=== PATIENT | female | born 1950 | race Caucasian/White ===

== ENCOUNTER → 2018-03-23 12:16 | Outpatient (CLI) | payer OTHER, SELFPAY ==
[2018-03-23 15:38] LABS: Free T4, Direct Thyroxine 0.98 ng/dL (0.78-2.19)
[2018-03-23 15:52] LABS: Thyroid Stimulating Hormone 0.38 uIU/mL (0.47-4.68)
== END ==
PROVIDERS: Family Provider Physician Assistant; PCP Physician Assistant; Visit Provider Internal Medicine Endocrinology, Diabetes & Metabolism
DX: E05.90 Thyrotoxicosis, unspecified without thyrotoxic crisis or storm (principal)
CPT/HCPCS: 36415; 84439; 84443

== ENCOUNTER → 2018-09-28 10:03 | Outpatient (CLI) | payer OTHER, SELFPAY ==
[2018-09-28 11:37] LABS: Free T4, Direct Thyroxine 1.08 ng/dL (0.78-2.19)
[2018-09-28 11:51] LABS: Thyroid Stimulating Hormone 0.44 uIU/mL (0.47-4.68)
== END ==
PROVIDERS: Family Provider Physician Assistant; PCP Physician Assistant; Visit Provider Internal Medicine Endocrinology, Diabetes & Metabolism
DX: E05.90 Thyrotoxicosis, unspecified without thyrotoxic crisis or storm (principal)
CPT/HCPCS: 36415; 84439; 84443

== ENCOUNTER 2019-01-20 07:59 | Day surgery (SDC) | payer OTHER, SELFPAY ==
--- NOTE | 2019-01-16 13:55 | PM.PREOP ---
Pre-operative Note Interval Note History & Physical reviewed/Exam performed by Physician: Yes Changes to H&P: No
--- NOTE | 2019-01-16 13:55 | PM.OP.1 ---
Operative Date/Time/Diagnoses Date of procedure: 01/20/19 Time of procedure: 08:45 Procedure & Clinicians Procedure: Preoperative diagnoses: 1. 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 2. Attention deficit disorder. Postoperative diagnoses: 1. Cataract removed by phacoemulsification with placement of posterior chamber intraocular lens. Procedure: Phacoemulsification with posterior chamber intraocular lens implant Surgeon: Estelle Gurrola MD Complications: None Specimen: None Implant: ZCBOO+21.0 Blood loss: None Anesthesia: Retrobulbar with monitored standby Description of procedure: Patient presents with a complaint of decreased vision due to cataract which is affecting activities of daily living. The patient wants surgery to improve vision. The patient was taken to the operating room and given IV sedation. A retrobulbar block consisting of 6 cc of 2% xylocaine without epinephrine mixed half and half with 0.5% Marcaine with 1 cc of hyaluronidase added is placed between the medial and lateral 1/3 of the inferior orbital rim. Lid akinesia is obtain with 1% xylocaine with epinephrine infiltrated along the lid margin. The eye is manually massaged for 30 sec, prepped using Betadine solution, and draped in the usual sterile fashion. Temporal approach was made, a 1 mm side-port incision was made 90? from the proposed clear corneal incision position. Phenylephrine 1.5% mixed with 1% xylocaine 0.2 cc was placed into the anterior chamber. Viscoat followed by Bethany was then placed. A 2.6 mm clear incision with a 2.6 mm blade was placed. A 360 degree capsulorrhexis style capsulotomy was then performed with a cystitome needle on a Healon. Hydrodelineation and hydrodissection were performed. The phacoemulsification unit is introduced, and sculpting notice used to groove the central lens. It was difficult to crack so was rotated and read grooved and then cracked into quadrants. It is then removed in chopping mode. Epi nucleus is removed with epinuclear mode and irrigation aspiration was used to remove the peripheral cortex. The posterior capsule is polished. The intraocular lens is selected, inspected, power confirmed, and placed in the posterior chamber. The pupil was constricted with Miostat.. The wound was stromally hydrated and tested for leaks, there was none and it was left sutureless. Vigamox 0.1 cc was placed into the anterior chamber. Kenalog 0.2 cc was placed in the superior subconjunctival space. A drop of antibiotic and was placed and the eye was patched and shielded. The patient was stable and returned to the recovery room in excellent condition. Dictated by: Estelle Gurrola MD Copy to: [facility]
--- NOTE | 2019-01-16 13:58 | P.OP_ITS ---
Operative Date/Time/Diagnoses Date of procedure: 01/20/19 Time of procedure: 08:45 Procedure & Clinicians Procedure: Preoperative diagnoses: 1. 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 2. Attention deficit disorder. Postoperative diagnoses: 1. Cataract removed by phacoemulsification with placement of posterior chamber intraocular lens. Procedure: Phacoemulsification with posterior chamber intraocular lens implant Surgeon: Estelle Gurrola MD Complications: None Specimen: None Implant: ZCBOO+21.0 Blood loss: None Anesthesia: Retrobulbar with monitored standby Description of procedure: Patient presents with a complaint of decreased vision due to cataract which is affecting activities of daily living. The patient wants surgery to improve vision. The patient was taken to the operating room and given IV sedation. A retrobulba r block consisting of 6 cc of 2% xylocaine without epinephrine mixed half and half with 0.5% Marcaine with 1 cc of hyaluronidase added is placed between the medial and lateral 1/3 of the inferior orbital rim. Lid akinesia is obtain with 1% xylocaine with epinephrine infiltrated along the lid margin. The eye is manually massaged for 30 sec, prepped using Betadine solution, and draped in the usual sterile fashion. Temporal approach was made, a 1 mm side-port incision was made 90? from the proposed clear corneal incision position. Phenylephrine 1.5% mixed with 1% xylocaine 0.2 cc was placed into the anterior chamber. Viscoat followed by Bethany was then placed. A 2.6 mm clear incision with a 2.6 mm blade was placed. A 360 degree capsulorrhexis style capsulotomy was then performed with a c ystitome needle on a Healon. Hydrodelineation and hydrodissection were performed. The phacoemulsification unit is introduced, and sculpting notice used to groove the central lens. It was difficult to crack so was rotated and read grooved and then cracked into quadrants. It is then removed in chopping mode. Epi nucleus is removed with epinuclear mode and irrigation aspiration was used to remove the peripheral cortex. The posterior capsule is polished. The intraocular lens is selected, inspected, power confirmed, and placed in the posterior chamber. The pupil was constricted with Miostat.. The wound was stromally hydrated and tested for leaks, there was none and it was left sutureless. Vigamox 0.1 cc was placed into the anterior chamber. Kenalog 0.2 cc was placed in the superior subconjunctival space. A drop of antibiotic and was placed and the eye was patched and shielded. The patient was stable and returned to the recovery room in excellent condition. Dictated by: Estelle Gurrola MD Copy to: [facility]
[2019-01-20] MEDS: PROPARACAINE 0.5% OPHTH SOL 2 DROPS EYE-OP (08:15)
[2019-01-20] MEDS: CATARACT EYE COMPOUND (10 DROPS/SYRINGE) 3 DROPS EYE-OP ×3 (08:16→08:26)
[2019-01-20 08:23] VITALS: BP 123/72; PULSE 79; RESP 15; TEMP 36.5; O2SAT 99; BMI 26.0
[2019-01-20] MEDS: CHONDROIDTIN/SOD HYALURONATE 1.05 ML SYRINGE INTRAOCULA (09:22)
[2019-01-20] MEDS: BALANCED SALT IRRIG SOLN NO.2 15 ML IRR (09:22)
[2019-01-20] MEDS: CARBACHOL 1.5 ML VIAL INJ (09:22)
[2019-01-20] MEDS: HYALURONATE SODIUM 10 MG/ML SYRINGE INJ (09:23)
[2019-01-20] MEDS: LIDOCAINE 1% W/EPI INJ 20 ML INJ (09:23)
[2019-01-20] MEDS: MOXIFLOXACIN OPHTH DROPS 3 ML BOTTLE 2 DROPS INJ (09:23)
[2019-01-20] MEDS: NEOMYCIN/POLY/DEX OPHTH OINT 1 APPLIC EYE-RIGHT (09:24)
[2019-01-20] MEDS: PHENYLEPHRINE/LIDOCAINE VIAL (OR) 0.2 ML EYE-OP (09:24)
[2019-01-20] MEDS: OFLOXACIN 0.3% OPHTH 5 ML 2 DROPS EYE-RIGHT (09:24)
[2019-01-20] MEDS: TRIAMCINOLONE 50 MG/5 ML VIAL INJ (09:25)
[2019-01-20] MEDS: LIDOCAINE 2% 4 ML, BUPIVACAINE 0.5% (PF) 4 ML, HYALURONIDASE 150 UNIT INJ (09:26)
[2019-01-20] MEDS: BALANCED SALT IRRIG SOLN NO.2 500 ML, EPINEPHrine 1 MG IRR (09:26)
[2019-01-20 09:27] VITALS: BP 114/72; PULSE 73; RESP 16; TEMP 36.2; O2SAT 100
[2019-01-20 09:32] VITALS: BP 107/70; PULSE 78; RESP 15; TEMP 36.1; O2SAT 98
--- NOTE | 2019-01-20 10:19 | SUR.PHASEII ---
0988 late entry - Stable, denies discomfort; Spouse to chairside; instructions reviewed, no questions, tolerating PO well.
== END 2019-01-20 09:40 | disposition home or self-care (01) ==
LOC: OR 08:00
PROVIDERS: Family Provider Physician Assistant; PCP Physician Assistant; Visit Provider Ophthalmology
PROC: (CPT 66984; principal; 2019-01-20 08:45)
DX: H25.811 Combined forms of age-related cataract, right eye (principal)
CPT/HCPCS: 66984; J0171; J2250; J2704; J3010; J3301; J3470

== ENCOUNTER → 2019-03-29 07:41 | Outpatient (CLI) | payer OTHER, SELFPAY ==
[2019-03-29 09:07] LABS: Free T4, Direct Thyroxine 0.92 ng/dL (0.78-2.19); Vitamin D 25 Hydroxy (D3) 35.7 ng/mL (30.0-100.0)
[2019-03-29 09:21] LABS: Thyroid Stimulating Hormone 0.97 uIU/mL (0.47-4.68)
[2019-04-01 14:50] LABS: Parathyroid Hormone Int 42 pg/mL (14-64)
== END ==
PROVIDERS: Family Provider Physician Assistant; PCP Physician Assistant; Visit Provider Internal Medicine Endocrinology, Diabetes & Metabolism
DX: E05.90 Thyrotoxicosis, unspecified without thyrotoxic crisis or storm (principal); M85.80 Other specified disorders of bone density and structure, unspecified site
CPT/HCPCS: 36415; 82306; 83970; 84439; 84443

== ENCOUNTER → 2019-05-19 08:58 | Outpatient (CLI) | payer OTHER, SELFPAY ==
--- NOTE | 2019-05-19 | DI.MG.S_ITS ---
BILATERAL DIGITAL SCREENING MAMMOGRAM 3D/2D WITH CAD: 05/19/2019 CLINICAL: Routine screening. Family history of breast cancer. Comparison is made to exams dated: 04/01/2013 mammogram, 09/19/2015 mammogram, and 10/09/2016 mammogram - [facility]. The tissue of both breasts is heterogeneously dense. This may lower the sensitivity of mammography. Current study was also evaluated with a Computer Aided Detection (CAD) system. No significant masses, calcifications, or other findings are seen in either breast. There has been no significant interval change. IMPRESSION: NEGATIVE There is no mammographic evidence of malignancy. A 1 year screening mammogram is recommended. This exam was interpreted at Station ID: [id number]. NOTE: For mammograms, a report in lay terms will be sent to the patient. Approximately 15% of breast malignancies will not be visualized mammographically. In the management of a palpable breast mass, a negative mammogram must not discourage biopsy of a clinically suspicious lesion. Electronically Signed By: Librado durbin/luis felipe:05/19/2019 13:32:25 letter sent: Normal Exam ACR BI-RADS Category 1: Negative 3341F
== END ==
PROVIDERS: PCP Physician Assistant; Visit Provider Physician Assistant
DX: Z12.31 Encounter for screening mammogram for malignant neoplasm of breast (principal); Z80.3 Family history of malignant neoplasm of breast
CPT/HCPCS: 77063; 77067

== ENCOUNTER → 2019-07-08 16:01 | Outpatient (ROUT) | payer OTHER, SELFPAY ==
[2019-07-08 16:23] LABS: Add Manual Diff / Slide Review NO; Basophils Absolute Auto 0 /uL (0-100); Basophils Percent Auto 0.7 % (0-2); Eosinophils Absolute Auto 200 /uL (0-450); Eosinophils Percent Auto 2.9 % (2-4); Hemoglobin 13.3 g/dL (12.0-16.0); Lymphocytes Absolute Auto 2000 /uL (1100-4500); Lymphocytes Percent Auto 29.2 % (25-40); Mean Corpuscular HGB Conc 33.3 % (30-36); Mean Corpuscular Hemoglobin 29.9 PG (26-34); Mean Corpuscular Volume 89.7 fL (80-100); Monocytes Absolute Auto 600 /uL (0-900); Monocytes Percent Auto 9.3 % (3-14); Neutrophils Absolute Auto 4000 /uL (1500-7000); Neutrophils Percent Auto 57.9 % (50-75); Platelet Count 343 X10^3/uL (150-400); Red Blood Cell Count 4.46 X10^6/uL (4.0-5.2); Red Cell Distribution Width 13.6 % (11.6-14.8); White Blood Cell Count 6.9 X10^3/uL (4.5-11.0)
[2019-07-08 16:36] LABS: Alanine Aminotransferase 32 IU/L (<35); Albumin 4.3 g/dL (3.5-5.0); Albumin Globulin Ratio 1.5 (1.0-2.8); Alkaline Phosphatase 73 U/L (38-126); Aspartate Aminotransferase 33 IU/L (14-36); BUN Creatinine Ratio 15.7 (6-22); Bilirubin Total 0.6 mg/dL (0.2-1.3); Blood Urea Nitrogen 11 mg/dL (7-17); Calcium 9.7 mg/dL (8.4-10.2); Carbon Dioxide 29 mmol/L (22-32); Chloride 101 mmol/L (98-107); Cholesterol 240 mg/dL (140-199); Estimated Glomerular Filt Rate > 60.0 mL/min (>60); Globulin 2.8 g/dL (1.7-4.1); Glucose 108 mg/dL (80-110); HDL Cholesterol 84 mg/dL (40-60); HEMOLYSIS < 15 (0-50); LDL Cholesterol Calculated 139 mg/dL (<100); Potassium 4.2 mmol/L (3.4-5.1); Sodium 140 mmol/L (137-145); Total Protein 7.1 g/dL (6.3-8.2); Triglycerides 85 mg/dL (35-150)
[2019-07-08 16:40] LABS: Rheumatoid Factor < 8.6 IU/mL (<12.0)
== END ==
PROVIDERS: PCP Physician Assistant; Visit Provider Physician Assistant
DX: E78.2 Mixed hyperlipidemia (principal); M06.9 Rheumatoid arthritis, unspecified; M19.041 Primary osteoarthritis, right hand; M19.042 Primary osteoarthritis, left hand
CPT/HCPCS: 80053; 80061; 85025; 86430

== ENCOUNTER → 2020-04-06 10:04 | Outpatient (CLI) | payer MEDICARE, SELFPAY ==
[2020-04-06 10:52] LABS: Alanine Aminotransferase 30 IU/L (<35); Albumin 4.4 g/dL (3.5-5.0); Albumin Globulin Ratio 1.4 (1.0-2.8); Alkaline Phosphatase 70 U/L (38-126); Aspartate Aminotransferase 29 IU/L (14-36); Bilirubin Total 0.6 mg/dL (0.2-1.3); Blood Urea Nitrogen 9 mg/dL (7-17); Calcium 9.6 mg/dL (8.4-10.2); Carbon Dioxide 29 mmol/L (22-32); Chloride 102 mmol/L (98-107); Estimated Glomerular Filt Rate > 60.0 mL/min (>60); Globulin 3.1 g/dL (1.7-4.1); Glucose 103 mg/dL (80-110); HEMOLYSIS < 15 (0-50); Potassium 4.2 mmol/L (3.4-5.1); Sodium 136 mmol/L (137-145); Total Protein 7.5 g/dL (6.3-8.2)
[2020-04-06 11:14] LABS: Vitamin D 25 Hydroxy (D3) 46.3 ng/mL (30.0-100.0)
[2020-04-06 11:28] LABS: Free T4, Direct Thyroxine 0.98 ng/dL (0.78-2.19)
[2020-04-06 11:42] LABS: Thyroid Stimulating Hormone 0.606 uIU/mL (0.47-4.68)
[2020-04-07 10:08] LABS: Parathyroid Hormone Int 32 pg/mL (15-65)
== END ==
PROVIDERS: PCP Physician Assistant; Referring Provider Internal Medicine Endocrinology, Diabetes & Metabolism; Visit Provider Internal Medicine Endocrinology, Diabetes & Metabolism
DX: M85.80 Other specified disorders of bone density and structure, unspecified site (principal); E05.90 Thyrotoxicosis, unspecified without thyrotoxic crisis or storm
CPT/HCPCS: 36415; 80053; 82306; 83970; 84439; 84443

== ENCOUNTER → 2020-04-16 09:21 | Outpatient (CLI) | payer MEDICARE, SELFPAY ==
[2020-04-18 01:41] LABS: COVID19 Sendout Not Detected (Not Detected)
== END ==
PROVIDERS: PCP Physician Assistant; Visit Provider Physician Assistant
DX: Z11.59 Encounter for screening for other viral diseases (principal)
CPT/HCPCS: 87635

== ENCOUNTER 2020-04-19 07:26 | Day surgery (SDC) | payer MEDICARE, SELFPAY ==
--- NOTE | 2020-04-19 08:06 | P.OP_ITS ---
Operative Date/Time/Diagnoses Date of procedure: 04/19/20 Time of procedure: 08:45 Procedure & Clinicians Procedure: Preoperative Diagnosis: 1.Left mature nuclear sclerotic and cortical cataract, complex, requiring capsular dye. 2. ADD. 3. Resolved left upper lid chalazion. Postoperative diagnoses: 1. Complex cataract removed by phacoemulsification with placement of posterior chamber intraocular lens. Procedure: Phacoemulsification with posterior chamber intraocular lens implant Surgeon: Estelle Gurrola MD Complications: None Specimen: None Implant: ZCBOO+21.0 Blood loss: None Anesthesia: Retrobulbar with monitored standby Description of procedure: Patient presents with a complaint of decreased vision due to cataract which is affecting activities of daily living both distance and near. The patient wants surgery to improve vision. 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 The patient was taken to the operating room and given IV sedation. A retrobulbar block consisting of 6 cc of 2% xylocaine without epinephrine mixed half and half with 0.5% Marcaine with 1 cc of hyaluronidase added is placed betw een the medial and lateral 1/3 of the inferior orbital rim. The eye is manually massaged for 30 sec, prepped using Betadine solution, and draped in the usual sterile fashion. Temporal approach was made, a 1 mm side-port incision was made 90? from the proposed clear corneal incision position. Phenylephrine 1.5% mixed with 1% xylocaine 0.2 cc was placed into the anterior chamber. Due to poor red reflex Visudyne capsular dye was placed in the anterior chamber under an air bubble. It was then irrigated from the anterior chamber with BSS.Viscoat followed by Bethany was then placed. A 2.6 mm clear incision with a 2.6 mm blade was placed. A 360 degree capsulorrhexis style capsulotomy was then performed with a cystitome needle on a Healon greatly aided by the capsular dye. Hydrodelineation and hydrodissection were performed. The phacoemulsification unit is introduced, and sculpting notice used to groove the central lens. It is then removed in chopping mode. extra viscoelastic was inserted several times to cushion the endothelium Epi nucleus is removed with epinuclear mode and irrigation aspiration was used to remove the peripheral cortex. The posterior capsule is polished. The intraocular lens is selected, inspected, power confirmed, and placed in the posterior chamber. The wound was stromally hydrated and tested for leaks, there was none and it was left sutureless. Vigamox 0.1 cc was placed into the anterior chamber. Kenalog 0.2 cc was placed in the superior subconjunctival space. A drop of antibiotic and was placed and the eye was patched and shielded. The patient was stable and returned to the recovery room in excellent condition. Dictated by: sEtelle Gurrola MD Copy to: [facility] Same procedure as scheduled: Yes
--- NOTE | 2020-04-19 08:06 | PM.PREOP ---
Pre-operative Note COVID-19 COVID-19 status: Negative Interval Note History & Physical reviewed/Exam performed by Physician: Yes Changes to H&P: No
[2020-04-19] MEDS: PROPARACAINE 0.5% OPHTH SOL 2 DROPS EYE-OP (08:17)
[2020-04-19] MEDS: CATARACT EYE COMPOUND (10 DROPS/SYRINGE) 3 DROPS EYE-OP (08:19)
[2020-04-19 08:27] VITALS: BP 126/74; PULSE 80; RESP 14; TEMP 37; O2SAT 100; BMI 25.9
[2020-04-19] MEDS: LIDOCAINE 2% 4 ML, BUPIVACAINE 0.5% (PF) 4 ML, HYALURONIDASE 150 UNIT INJ (08:48)
[2020-04-19] MEDS: MOXIFLOXACIN INJ 5 MG/ML VIAL EYE-OP (09:03)
[2020-04-19] MEDS: ERYTHROMYCIN OPHTH 1 GM OINT 1 APPLIC EYE-RIGHT (09:03)
[2020-04-19] MEDS: CHONDROIDTIN/SOD HYALURONATE 1.05 ML SYRINGE INTRAOCULA (09:03)
[2020-04-19] MEDS: HYALURONATE SODIUM 10 MG/ML SYRINGE INJ (09:03)
[2020-04-19] MEDS: TRYPAN BLUE 0.5 ML SYRINGE INJ (09:04)
[2020-04-19] MEDS: TRIAMCINOLONE 50 MG/5 ML VIAL INJ (09:04)
[2020-04-19] MEDS: PHENYLEPHRINE/LIDOCAINE VIAL (OR) 0.2 ML EYE-OP (09:04)
[2020-04-19] MEDS: BALANCED SALT IRRIG SOLN NO.2 500 ML, EPINEPHrine 1 MG IRR (09:05)
[2020-04-19 09:45] VITALS: BP 124/69; PULSE 73; RESP 16; TEMP 36.6; O2SAT 99
== END 2020-04-19 09:52 | disposition home or self-care (01) ==
LOC: OR 07:28
PROVIDERS: PCP Physician Assistant; Referring Provider Physician Assistant; Visit Provider Ophthalmology
PROC: (CPT 66982; principal; 2020-04-19 08:45)
DX: H25.812 Combined forms of age-related cataract, left eye (principal)
CPT/HCPCS: 66982; J0171; J2250; J2704; J3301; J3470

== ENCOUNTER → 2020-11-24 10:31 | Outpatient (CLI) | payer OTHER, SELFPAY ==
[2020-11-24 11:11] LABS: Add Manual Diff / Slide Review NO; Basophils Absolute Auto 100 /uL (0-100); Eosinophils Absolute Auto 200 /uL (0-450); Eosinophils Percent Auto 3.5 % (2-4); Hematocrit 40.1 % (36-46); Hemoglobin 13.4 g/dL (12.0-16.0); Lymphocytes Absolute Auto 2600 /uL (1100-4500); Lymphocytes Percent Auto 37.6 % (25-40); Mean Corpuscular HGB Conc 33.4 % (30-36); Mean Corpuscular Hemoglobin 29.5 PG (26-34); Mean Corpuscular Volume 88.3 fL (80-100); Monocytes Absolute Auto 600 /uL (0-900); Monocytes Percent Auto 8.5 % (3-14); Neutrophils Absolute Auto 3500 /uL (1500-7000); Neutrophils Percent Auto 49.4 % (50-75); Platelet Count 385 X10^3/uL (150-400); Red Blood Cell Count 4.55 X10^6/uL (4.0-5.2); Red Cell Distribution Width 14.1 % (11.6-14.8)
[2020-11-24 11:22] LABS: Alanine Aminotransferase 44 IU/L (<35); Albumin 4.4 g/dL (3.5-5.0); Albumin Globulin Ratio 1.4 (1.0-2.8); Alkaline Phosphatase 89 U/L (38-126); Aspartate Aminotransferase 33 IU/L (14-36); BUN Creatinine Ratio 15.9 (6-22); Bilirubin Total 0.4 mg/dL (0.2-1.3); Blood Urea Nitrogen 11 mg/dL (7-17); Calcium 9.7 mg/dL (8.4-10.2); Carbon Dioxide 29 mmol/L (22-32); Chloride 103 mmol/L (98-107); Cholesterol 238 mg/dL (140-199); Estimated Glomerular Filt Rate > 60.0 mL/min (>60); Globulin 3.2 g/dL (1.7-4.1); Glucose 106 mg/dL (80-110); HDL Cholesterol 91 mg/dL (40-60); HEMOLYSIS < 15 (0-50); LDL Cholesterol Calculated 114 mg/dL (<100); Potassium 3.8 mmol/L (3.4-5.1); Sodium 136 mmol/L (137-145); Total Protein 7.6 g/dL (6.3-8.2); Triglycerides 164 mg/dL (35-150)
== END ==
PROVIDERS: PCP Physician Assistant; Referring Provider Physician Assistant; Visit Provider Physician Assistant
DX: E78.2 Mixed hyperlipidemia (principal)
CPT/HCPCS: 36415; 80053; 80061; 84443; 85025

== ENCOUNTER → 2020-12-25 08:12 | Outpatient (CLI) | payer OTHER, SELFPAY ==
[2020-12-25 09:07] LABS: Add Manual Diff / Slide Review NO; Basophils Absolute Auto 100 /uL (0-100); Basophils Percent Auto 1.1 % (0-2); Eosinophils Absolute Auto 200 /uL (0-450); Eosinophils Percent Auto 3.6 % (2-4); Hematocrit 39.2 % (36-46); Hemoglobin 13.3 g/dL (12.0-16.0); Lymphocytes Absolute Auto 2100 /uL (1100-4500); Lymphocytes Percent Auto 40.3 % (25-40); Mean Corpuscular Hemoglobin 30.1 PG (26-34); Mean Corpuscular Volume 88.7 fL (80-100); Monocytes Absolute Auto 500 /uL (0-900); Monocytes Percent Auto 8.9 % (3-14); Neutrophils Absolute Auto 2400 /uL (1500-7000); Neutrophils Percent Auto 46.1 % (50-75); Platelet Count 311 X10^3/uL (150-400); Red Blood Cell Count 4.42 X10^6/uL (4.0-5.2); Red Cell Distribution Width 14.3 % (11.6-14.8); White Blood Cell Count 5.2 X10^3/uL (4.5-11.0)
[2020-12-25 10:26] LABS: Alanine Aminotransferase 26 IU/L (<35); Albumin Globulin Ratio 1.5 (1.0-2.8); Alkaline Phosphatase 64 U/L (38-126); Aspartate Aminotransferase 27 IU/L (14-36); BUN Creatinine Ratio 15.7 (6-22); Bilirubin Total 0.4 mg/dL (0.2-1.3); Blood Urea Nitrogen 11 mg/dL (7-17); Calcium 9.6 mg/dL (8.4-10.2); Carbon Dioxide 28 mmol/L (22-32); Chloride 103 mmol/L (98-107); Cholesterol 234 mg/dL (140-199); Estimated Glomerular Filt Rate > 60.0 mL/min (>60); Globulin 2.7 g/dL (1.7-4.1); Glucose 78 mg/dL (80-110); HDL Cholesterol 94 mg/dL (40-60); HEMOLYSIS < 15 (0-50); LDL Cholesterol Calculated 120 mg/dL (<100); Potassium 4.1 mmol/L (3.4-5.1); Sodium 138 mmol/L (137-145); Total Protein 6.7 g/dL (6.3-8.2); Triglycerides 102 mg/dL (35-150)
[2020-12-26 16:01] LABS: Free T3, Triiodothyronine Free 4.35 pg/mL (2.77-5.27); Free T4, Direct Thyroxine 1.26 ng/dL (0.78-2.19)
[2020-12-28 17:48] LABS: Thyroid Stimulating Hormone 0.519 uIU/mL (0.47-4.68)
== END ==
PROVIDERS: PCP Physician Assistant; Referring Provider Physician Assistant; Visit Provider Physician Assistant
DX: E89.2 Postprocedural hypoparathyroidism (principal)
CPT/HCPCS: 36415; 80053; 80061; 84439; 84443; 84481; 85025

== ENCOUNTER → 2021-11-19 09:40 | Outpatient (CLI) | payer OTHER, SELFPAY ==
--- NOTE | 2021-11-19 09:45 | DI.RAD.S_ITS ---
PROCEDURE: XR KNEE RT 3V INDICATIONS: CHRONIC RIGHT KNEE PAIN TECHNIQUE: 3 views of the knee were acquired. COMPARISON: [facility], , KNEE 1-2 VIEWS RIGHT, 10/30/2015, 10:18. FINDINGS: Bones: No fractures or dislocations. No suspicious bony lesions. Moderate to advanced medial compartment joint space loss . Tricompartment osteophytosis. Soft tissues: Trace joint effusion. No suspicious soft tissue calcifications. IMPRESSION: Progressed medial compartment degeneration. Dictated by: Joel Melissa M.D. on 11/19/2021 at 10:22 Approved by: Joel Melissa M.D. on 11/19/2021 at 10:37
== END ==
PROVIDERS: PCP Physician Assistant; Referring Provider Physician Assistant; Visit Provider Physician Assistant
DX: M25.561 Pain in right knee (principal); M17.11 Unilateral primary osteoarthritis, right knee; G89.29 Other chronic pain
CPT/HCPCS: 73562

== ENCOUNTER → 2021-12-12 08:28 | Outpatient (CLI) | payer OTHER, SELFPAY ==
--- NOTE | 2021-12-12 | DI.MG.S_ITS ---
BILATERAL DIGITAL SCREENING MAMMOGRAM 3D/2D WITH CAD: 12/12/2021 CLINICAL: Routine screening. Family history of breast cancer. Comparison is made to exams dated: 05/19/2019 mammogram - [facility], 10/09/2016 mammogram, and 09/19/2015 mammogram - [facility]. The tissue of both breasts is heterogeneously dense. This may lower the sensitivity of mammography. Current study was also evaluated with a Computer Aided Detection (CAD) system. No significant masses, calcifications, or other findings are seen in either breast. There has been no significant interval change. IMPRESSION: NEGATIVE There is no mammographic evidence of malignancy. A 1 year screening mammogram is recommended. This exam was interpreted at Station ID: [id number]. NOTE: For mammograms, a report in lay terms will be sent to the patient. Approximately 15% of breast malignancies will not be visualized mammographically. In the management of a palpable breast mass, a negative mammogram must not discourage biopsy of a clinically suspicious lesion. Electronically Signed By: Jerson Moreland M.D., jr/luis felipe:12/12/2021 13:45:51 letter sent: Normal Exam ACR BI-RADS Category 1: Negative 3341F
== END ==
PROVIDERS: PCP Physician Assistant; Referring Provider Physician Assistant; Visit Provider Physician Assistant
DX: Z12.31 Encounter for screening mammogram for malignant neoplasm of breast (principal); Z80.3 Family history of malignant neoplasm of breast
CPT/HCPCS: 77063; 77067

== ENCOUNTER → 2022-04-16 10:22 | Outpatient (CLI) | payer OTHER, SELFPAY ==
[2022-04-16 11:40] LABS: Add Manual Diff / Slide Review NO; Basophils Absolute Auto 0 /uL (0-100); Basophils Percent Auto 0.5 % (0-2); Eosinophils Absolute Auto 100 /uL (0-450); Eosinophils Percent Auto 1.3 % (2-4); Hematocrit 38.4 % (36-46); Lymphocytes Absolute Auto 1900 /uL (1100-4500); Lymphocytes Percent Auto 27.2 % (25-40); Mean Corpuscular Hemoglobin 30.2 PG (26-34); Mean Corpuscular Volume 88.8 fL (80-100); Monocytes Absolute Auto 500 /uL (0-900); Monocytes Percent Auto 7.5 % (3-14); Neutrophils Absolute Auto 4500 /uL (1500-7000); Neutrophils Percent Auto 63.5 % (50-75); Platelet Count 354 X10^3/uL (150-400); Red Blood Cell Count 4.32 X10^6/uL (4.0-5.2)
[2022-04-16 11:49] LABS: Hemoglobin A1C% w Est Avg Glu 5.7 % (4.0-6.0)
[2022-04-16 12:27] LABS: BUN Creatinine Ratio 15.6 (6-22); Blood Urea Nitrogen 12 mg/dL (7-17); Calcium 9.4 mg/dL (8.4-10.2); Carbon Dioxide 30 mmol/L (22-32); Chloride 100 mmol/L (98-107); Estimated Glomerular Filt Rate > 60 mL/min (>60); Glucose 112 mg/dL (80-110); HEMOLYSIS < 15 (0-50); Sodium 137 mmol/L (137-145)
== END ==
PROVIDERS: PCP Physician Assistant; Referring Provider Orthopaedic Surgery; Visit Provider Orthopaedic Surgery
DX: Z01.818 Encounter for other preprocedural examination (principal); R73.9 Hyperglycemia, unspecified; Z01.812 Encounter for preprocedural laboratory examination
CPT/HCPCS: 36415; 80048; 83036; 85025; 93005

== ENCOUNTER → 2022-06-14 11:31 | Outpatient (CLI) | payer OTHER, SELFPAY ==
[2022-06-14 13:09] LABS: COVID19 -Nasal RAPID Negative (Negative)
== END ==
PROVIDERS: PCP Physician Assistant; Referring Provider Orthopaedic Surgery; Visit Provider Orthopaedic Surgery
DX: Z20.822 Contact with and (suspected) exposure to COVID-19 (principal)
CPT/HCPCS: 87635; C9803

== ENCOUNTER 2022-06-17 07:53 | Day surgery (SDC) | payer OTHER, SELFPAY ==
[2022-06-12 12:04] VITALS: BMI 24.7
[2022-06-17] VITALS (10 sets, daily range): BP systolic 109–148; BP diastolic 65–78; PULSE 73–822; RESP 15–18; TEMP 36.1–36.9; O2SAT 93–98; BMI 24.7
--- NOTE | 2022-06-17 06:00 | DI.RAD.S_ITS ---
PROCEDURE: XR KNEE RT 1TO2V INDICATIONS: prosthesis placement TECHNIQUE: 2 view(s) of the knee acquired. COMPARISON: [facility], [facility], [facility] 3V[facility] 10:18. FINDINGS: Bones: Patient is status post knee joint arthroplasty. Hardware components are in expected positions. Visualized bony structures are intact. Soft tissues: Overlying postoperative changes are noted. IMPRESSION: Right knee arthroplasty with appropriate postsurgical appearance. Dictated by: Jonathan Zavala M.D. on 06/17/2022 at 14:24 Approved by: Jonathan Zavala M.D. on 06/17/2022 at 14:24
[2022-06-17] MEDS: CELECOXIB 200 MG CAPSULE PO (08:30)
[2022-06-17] MEDS: ACETAMINOPHEN 325 MG TABLET 975 MG PO (08:30)
[2022-06-17] MEDS: LACTATED RINGERS 1,000 ML 42 ML IV (08:30)
[2022-06-17] MEDS: PREGABALIN 75 MG CAPSULE PO (08:30)
--- NOTE | 2022-06-17 09:40 | PM.PREOP ---
Pre-operative Note COVID-19 COVID-19 status: Negative Result date/Date tested (Pos, Neg/Pending): 06/14/22 Interval Note History & Physical reviewed/Exam performed by Physician: Yes Changes to H&P: No
[2022-06-17] MEDS: CEFAZOLIN 2 GM/100 ML PREMIX 100 ML IV (10:20)
[2022-06-17] MEDS: TRANEXAMIC ACID 1,000 MG VIAL 1000 MG INJ ×2 (10:35→11:31)
[2022-06-17] MEDS: BUPIVACAINE 0.25% (PF) 60 ML, EPINEPHrine 0.3 MG INJ (10:48)
[2022-06-17] MEDS: BUPIVACAINE LIPOSOME 266 MG/20 ML VIAL INJ (10:49)
[2022-06-17] MEDS: MORPHINE 4 MG/ML INJ INJ (10:49)
--- NOTE | 2022-06-17 10:53 | SUR.OPER ---
Supine on padded OR bed. Pillow under head, arms secured on padded armboards <90 degree abduction. Safety belt across torso. Non-operative leg secured with tape over blanket over lower leg. Operative leg secured in DeMayo/Cliff/Nathe positioner. Foam padded brace at thigh of operative leg.
--- NOTE | 2022-06-17 12:00 | P.OP_ITS ---
Operative Date/Time/Diagnoses Date of procedure: 06/17/22 Time of procedure: 12:00 Pre-op diagnosis: Right knee osteoarthritis Post-op diagnosis: same Procedure & Clinicians Procedure: Right total knee replacement Same procedure as scheduled: Yes Indications: The patient has had progressively worsening right knee pain with radiographic changes consistent with arthritis. Non-operative management has failed and the patient has requested total knee replacement. The risks, benefits and alternatives to surgery were discussed with the patient prior to proceeding. Risks discussed included, but were not limited to, failure to relieve pain, stiffness, infection, nerve damage, deep venous thrombosis, pulmonary embolism, stroke, coma, heart attack, permanent paralysis and , as well as the potential need for eventual revision of the prosthetic. Surgeon: Nnamdi Strasus Per Diem Interpreter: Susi Sanchez Click Yes if Unassisted: No Anesthesia Type: General, Spinal and Local Operative Notes Findings: Severe medial compartment osteoarthritis with moderate patellofemoral involvement and relative preservation of the lateral compartment. Closure Type: primary Specimen(s): none sent Prosthetic devices, grafts, tissues, transplants, or devices: Implants used in this procedure were manufactured by the [employer] and [employer] and included the BCS II Journey total knee replacement with a size 5 right cobalt chromium femur, a size 4 right non porous tibial base plate, a 9 mm cross-linked polyethylene tibial insert and a 32 mm oval Zohra II patella. Applied: implant(s) Estimated Blood Loss (mL): 25 Blood products transfused: none Tourniquet time (min): 44 Procedure in detail: The patient was seen in the pre-operative area, where the patient identified the right knee as the operative site and this was marked with my initials. The patient received pre-operative antibiotics, and was taken to the operating room and placed on the operative table in the supine position. After satisfactory anesthesia, a hand rug braider out was performed. The right leg was encircled with a tourniquet about the proximal thigh, and the leg was prepared from the toes to the tourniquet with ChloroPrep in the usual fashion and draped through sterile drapes. The leg was elevated and exsanguinated with Eschmark bandage and the tourniquet inflated to 250 mmHg pressure. The knee was approached through an approximately 18 cm incision centered over the patella and carried into the knee through a medial parapatellar arthrotomy. The anterior osteophytes and soft tissues were removed. The rotational landmarks of Blair's line and the transepicondylar axis were marked on the femur with electrocautery, and intramedullary guide holes for the femur and tibia were created. The distal femoral cut was made in 6 degrees of valgus using the intramedullary guide at the primary cut setting. The proximal tibial cut was then made using the intramedullary guide, taking 9 mm of bone off the less involved side. The extension gap was checked and the rotation of the femoral component confirmed with the gap balancing system. The anterior, posterior and chamfer cuts were then made. The posterior osteophytes and soft tissues were then removed. The posterior capsule was injected with part of a mixture of 60 ml 0.25% Marcaine mixed with 20 ml Exparel and 4 mg of morphine for post-operative pain control. The remainder of this mixture was injected into the capsule and subcutaneous tissues during cement curing. The tibia was prepared with the rotation set by an extra medullary guide. Trial tibial and femoral components were then placed and the intercondylar notch cut through the femoral trial. Range of motion was 0-140 degrees, with good stability throughout the range. The patella was then cut to accommodate the patellar prosthetic. There was no need for a lateral release. The trials were then removed, and the femoral hole plugged with a bone plug. The bone was prepared with pulsatile lavage, and dried with a sponge. Cement was applied and the final prosthetics placed. Excess cement was removed during and after cement curing. After confirming there was no extruded cement posteriorly, the final tibial insert was placed. The knee was copiously irrigated and the tourniquet deflated. Hemostasis was obtained. The capsule was closed with in terrupted # 2 polyester suture. The subcutaneous layer was closed with 3-0 Vicryl, and the skin with a running 3-0 V-Lock suture and Dermabond. An Aquacel Ag dressing was applied and the patient was taken to recovery having tolerated the procedure well. The services of Ms. Sanchez were necessary to provide exposure and positioning of the knee for appropriate, expedient surgery. If she had not been present surgery would have been considerably longer. The presence of a skilled patient care assistant was necessary. Complications: none Post-operative Condition: stable Disposition: PACU Plan for aftercare: The patient will be discharged today. She will follow up in the office in 10-14 days. A prescription for oxycodone has been sent to the pharmacy. She is been instructed in the use of Tylenol and anti-inflammatories for additional pain control in the use of low-dose aspirin for DVT prophylaxis.
[2022-06-17] MEDS: OXYCODONE IR 5 MG TABLET PO ×2 (12:20→13:03)
[2022-06-17] MEDS: ONDANSETRON 4 MG/2 ML INJ IV (13:03)
--- NOTE | 2022-06-17 13:12 | SUR.PHASEII ---
Placed patient in room 5 in bed in preparation for discharge home. Right knee remains clean, dry and intact. Patient c/o pain 4/10; no nausea. Patient denies any numbness or tingling. Patient able to lift both lower extremities independently. Patient c/o being sleepy. Advised patient that PT/OT would be here to evaluate soon and assist with ambulation with walker. Called , Yrn, who will brain picker medications from pharmacy. V/U.
--- NOTE | 2022-06-17 13:50 | SUR.PHASEII ---
No order for PT/OT noted on chart. Notified Dr Strauss, who states,Patient does not need physical therapy and just needs to go home. Sat patient up on the side of the bed. Patient c/o slight dizziness but denies any nausea. BP 147/84. Patient able to stand up with assistance to walker and attempted to take a few steps with walker but then becomes unbalanced. Had to sit patient back down in bed. Apple sauce provided. Will attempt to get patient out of bed in a bit.
--- NOTE | 2022-06-17 14:14 | SUR.PHASEII ---
Assumed care, report received from BECKIE Zimmerman
--- NOTE | 2022-06-17 15:13 | SUR.PHASEII ---
Patient able to ambulate, SBA to the bathroom. Unable to void. Additional PO fluids provided. Call light within reach.
--- NOTE | 2022-06-17 16:36 | SUR.PHASEII ---
Patient was saline locked upon assuming care. Dressed with assistance from spouse.
== END 2022-06-17 16:27 | disposition home or self-care (01) ==
PROVIDERS: PCP Physician Assistant; Visit Provider Orthopaedic Surgery
PROC: 0SRC0JZ Replacement of Right Knee Joint with Synthetic Substitute, Open Approach (ICD-10-PCS; CPT 27447; principal; 2022-06-17 10:00)
DX: M17.11 Unilateral primary osteoarthritis, right knee (principal)
CPT/HCPCS: 27447; 73560; C1776; C1713; C9290; J0171; J0690; J1100; J2250; J2270; J2405; J2704; J3010